=== PATIENT | male | born 1955 | race Caucasian/White ===

== ENCOUNTER 2018-07-11 01:54 | Emergency (ER) | payer OTHER ==
[~2018-07-11] VITALS: Ht 188 cm; Wt 106.8 kg
[2018-07-11 01:55] VITALS: BP 140/83; TEMP 97.7
[2018-07-11] MEDS ORDERED: BENICAR40 MG PO (03:03)
[2018-07-11 04:56] VITALS: PULSE 88
== END 2018-07-11 04:35 | disposition home or self-care (01) ==
LOC: COL.ER 01:54
DX: S64.32XA Injury of digital nerve of left thumb, initial encounter (principal); S60.222A Contusion of left hand, initial encounter; E11.9 Type 2 diabetes mellitus without complications; Z23 Encounter for immunization; W23.0XXA Caught, crushed, jammed, or pinched between moving objects, initial encounter; Y92.79 Other farm location as the place of occurrence of the external cause